=== PATIENT | female | born 1945 | race Caucasian/White ===

== ENCOUNTER 2022-04-22 09:00 | Outpatient (CLI) | payer MEDICARE, BC | END 2022-04-22 09:01 | disposition home or self-care (01) | LOC: NM 09:00 | PROVIDERS: ATTEND Student in an Organized Health Care Education/Training Program | DX: E21.3 Hyperparathyroidism, unspecified (principal) | CPT/HCPCS: 78072; A9500 ==

== ENCOUNTER 2022-11-10 15:00 | Inpatient (IN) | payer MEDICARE, BC ==
[2022-11-10 16:22] LABS: Hemoglobin 13.9 g/dL (12.0-15.5); Mean Corpuscular HGB CONC 35.1 g/dL (32.0-36.0); Mean Corpuscular Hemoglobin 33.7 pg (27.0-33.0); Mean Corpuscular Volume 96.1 fl (81.6-98.3); Mean Platelet Volume 10.8 fl (7.4-10.4); Platelet Count 212 10x3/uL (150-450); RBC Distribution Width 12.9 % (11.5-14.5); Red Blood Cell (RBC) Count 4.12 10x6/uL (3.90-5.03); White Blood Cell (WBC) Count 5.1 10x3/uL (3.5-10.5)
[2022-11-10 16:31] LABS: Anion Gap 13 mmol/L (10-20); BUN (Urea Nitrogen) 11 mg/dL (9.8-20.1); Calc. Creatinine Clearance 0 mL/min (70-130); Calcium 10.3 mg/dL (7.8-10.44); Carbon Dioxide 26 mmol/L (23-31); Chloride 99 mmol/L (98-107); Estimated GFR 88; Glucose 90 mg/dL (83-110); Potassium 3.7 mmol/L (3.5-5.1); Sodium 134 mmol/L (136-145)
[2022-11-11] MEDS ORDERED: Albumin 5% 500 ML ONE (06:16)
[2022-11-11] MEDS ORDERED: Fentanyl 250 MCG/5 ML VIAL ONE (06:29)
[2022-11-11] MEDS ORDERED: niCARdipine 25 MG/10 ML VIAL ONE (06:30)
[2022-11-11] MEDS ORDERED: SUGAMMADEX SODIUM 200 MG/2 ML VIAL ONE (06:30)
[2022-11-11] MEDS ORDERED: Rocuronium Bromide 50 MG/5 ML VIAL ONE (06:30)
[2022-11-11] MEDS ORDERED: Aminocaproic Acid 5 GM/20 ML VIAL ONE ×2 (06:30→07:34)
[2022-11-11] MEDS ORDERED: Insulin Regular 300 UNITS/3 ML VIAL ONE (06:30)
[2022-11-11] MEDS ORDERED: Midazolam HCl 5 mg/5 ml Vial ONE (06:30)
[2022-11-11] MEDS ORDERED: Heparin 10,000 UNITS/1 ML VIAL 30,000 UNITS in Sodium Chloride 0.9% 1,000 ML FS SCH (07:00)
[2022-11-11 07:21] LABS: SARS-CoV-2 NAA Rapid Test Not Detected (NotDetected)
[2022-11-11] MEDS ORDERED: Protamine Sulfate 250 MG/25 ML VIAL ONE (07:34)
[2022-11-11] MEDS ORDERED: Mannitol 12.5 GM/50 ML ONE (07:34)
[2022-11-11] MEDS ORDERED: Calcium Chloride 1 GM/10 ML Abboject SYRINGE ONE (07:34)
[2022-11-11] MEDS ORDERED: Heparin 30,000 units/30 ml VIAL ONE (07:34)
[2022-11-11] MEDS ORDERED: Thrombin 5000 UNITS/5 ML VIAL ONE (07:34)
[2022-11-11] MEDS ORDERED: PROPOFOL 200 MG/20 ML VIAL ONE (07:34)
[2022-11-11] MEDS ORDERED: Lidocaine 1% PF 5 ML VIAL ONE (07:34)
[2022-11-11] MEDS ORDERED: Heparin 5,000 UNITS/ML VIAL ONE (07:34)
[2022-11-11] MEDS ORDERED: Rocuronium Bromide 10 MG/ML (10ML VIAL) ONE (07:34)
[2022-11-11] MEDS ORDERED: Sodium Bicarb 50 MEQ/50 ML VIAL ONE ×2 (07:34→18:04)
[2022-11-11] MEDS ORDERED: Norepinephrine 4 MG/4 ML VIAL ONE (07:34)
[2022-11-11] MEDS ORDERED: Potassium Chloride 60 MEQ/30 ML VIAL ONE (07:34)
[2022-11-11] MEDS ORDERED: Cardioplegic Soln 1,000 ML BAG ONE (07:34)
[2022-11-11] MEDS ORDERED: Papaverine 60 MG/2 ML VIAL ONE (07:34)
[2022-11-11] MEDS ORDERED: Lidocaine 2% PF 100 mg/5 ml Syringe ONE (07:34)
[2022-11-11] MEDS ORDERED: Vancomycin 1 GM VIAL ONE (07:34)
[2022-11-11] MEDS ORDERED: PHENYLEPHRINE-NS 100 MCG/ML 10 ML SYRINGE ONE (08:42)
[2022-11-11] MEDS ORDERED: HYDROcodone/Acetaminophen 5/325 mg Tablet PO PRN (11:18)
[2022-11-11] MEDS ORDERED: Promethazine HCl 25 MG/ML VIAL IM PRN (11:18)
[2022-11-11] MEDS ORDERED: Guaifenesin DM 100-10/5 ML UDCUP PO PRN (11:18)
[2022-11-11] MEDS ORDERED: Bisacodyl 10 MG SUPP PR PRN (11:18)
[2022-11-11] MEDS ORDERED: Cyclobenzaprine 10 MG TAB PO PRN (11:18)
[2022-11-11] MEDS ORDERED: Bisacodyl 5 MG TAB PO PRN (11:18)
[2022-11-11] MEDS ORDERED: NOREPINEPHRINE 8 MG/250 ML-D5W 250 ML IVPB PRN (11:18)
[2022-11-11] MEDS ORDERED: Nitroglycerin 50 MG/250 ML BOT 250 ML IVPB PRN (11:18)
[2022-11-11] MEDS ORDERED: DOPamine 400 MG/D5W 250 ML 250 ML IVPB PRN (11:18)
[2022-11-11] MEDS ORDERED: Post-Op Insulin Drip Protocol IVPB ONE (11:18)
[2022-11-11] MEDS ORDERED: Mag-Al 1200 mg/1200 mg/30 ML UDCUP PO PRN (11:18)
[2022-11-11] MEDS ORDERED: hydrALAZINE 20 MG/ML VIAL SLOW IVP PRN (11:18)
[2022-11-11] MEDS ORDERED: Hetastarch 6% 500 ML 500 ML IVPB PRN (11:18)
[2022-11-11] MEDS ORDERED: niCARdipine 25 MG in Sodium Chloride 0.9% 250 ML 250 ML IVPB PRN (11:18)
[2022-11-11] MEDS ORDERED: Ondansetron PF 4 MG/2 ML Vial IVP PRN (11:18)
[2022-11-11] MEDS ORDERED: Ipratropium/Albuterol 3 ML NEB NEB PRN (11:18)
[2022-11-11] MEDS ORDERED: FENTANYL 50 MCG/ML 1 ML VIAL SLOW IVP PRN ×2 (11:32)
[2022-11-11 11:35] LABS: Actual Bicarbonate (HCO3a) 22.7 mEq/L (22-28); Base Excess (BEa) -0.6 mEq/L (-2.0 to +3.0); Calcium, Ionized (arterial) 1.14 mmol/L (1.12-1.30); Carboxyhemoglobin (COHb) 0.2 gm% (0.0-3.0); Hemoglobin (Hb) 12.1 g/dL (12.0-16.0); O2 Tension (PaO2), arterial 163.7 mmHg (> 70.0); Potassium - ABG Lab 3.33 mmol/L (3.70-5.30); pH, Arterial 7.46 (7.35-7.45)
[2022-11-11 11:36] LABS: Puncture Site Arterial Line
[2022-11-11 11:45] LABS: #Eosinphils 0.1 thou/uL (0.0-0.7); #Lymphocytes 1.1 thou/uL (1.20-3.40); #Monocytes 0.4 thou/uL (0.11-0.59); %Basophils 0.1 % (0.0-1.0); %Monocytes 5.7 % (0.0-10.0); %Neutrophils 79.2 % (42.0-75.0); Hemoglobin 11.4 g/dL (12.0-16.0); Mean Corpuscular HGB CONC 34.2 g/dL (32.0-36.0); Mean Corpuscular Hemoglobin 34.8 pg (27.0-31.0); Mean Platelet Volume 8.4 fL (7.4-10.4); Platelet Count 116 10x3/uL (130-400); RBC Distribution Width 12.1 % (11.5-14.5); Red Blood Cell (RBC) Count 3.28 mill/uL (4.20-5.40); White Blood Cell (WBC) Count 7.6 10x3/uL (4.8-10.8)
[2022-11-11] MEDS ORDERED: Insulin Regular 300 UNITS/3 ML VIAL SC PRN (11:45)
[2022-11-11] MEDS ORDERED: Dextrose 5% in Water 1,000 ML IV PRN (11:45)
[2022-11-11] MEDS ORDERED: HUMULIN R 100 UNITS in Sodium Chloride 0.9% 100 ML IVPB SCH (11:45)
[2022-11-11] MEDS ORDERED: Dextrose 50% Abboject 50 ML SYRINGE SLOW IVP PRN (11:45)
[2022-11-11] MEDS: Morphine 4 MG/ML VIAL SLOW IVP PRN ×2 (11:46→12:15)
[2022-11-11] MEDS: Ketorolac Tromethamine 30 MG/ML VIAL IVP SCH ×3 (11:47→23:41)
[2022-11-11 11:53] LABS: INR-International Normal Ratio 1.3; Prothrombin Time 17.1 sec (12.0-14.7)
[2022-11-11 11:58] LABS: Anion Gap 11 mmol/L (10-20); BUN (Urea Nitrogen) 11 mg/dL (9.8-20.1); Calc. Creatinine Clearance 86 mL/min (70-130); Calcium 7.7 mg/dL (7.8-10.44); Carbon Dioxide 19 mmol/L (23-31); Chloride 107 mmol/L (98-107); Estimated GFR 93; Glucose 116 mg/dL (83-110); Potassium 3.3 mmol/L (3.5-5.1); Sodium 134 mmol/L (136-145)
[2022-11-11] MEDS: Lactated Ringer's 1,000 ML IV SCH (12:31)
[2022-11-11] MEDS: Potassium Chloride 20 MEQ/100 ML PREMIX BAG IVPB PRN (12:31)
[2022-11-11] MEDS ORDERED: Fentanyl 100 MCG/2 ML VIAL SLOW IVP PRN ×2 (14:15)
[2022-11-11] MEDS: CEFAZOLIN 2 GM in Sodium Chloride 0.9% 100 ML IVPB SCH ×2 (16:30→23:41)
[2022-11-11 17:14] LABS: Hemoglobin 11.8 g/dL (12.0-16.0)
[2022-11-11 17:30] LABS: Potassium 4.2 mmol/L (3.5-5.1)
[2022-11-11 17:46] LABS: Actual Bicarbonate (HCO3a) 19.4 mEq/L (22-28); Base Excess (BEa) -5.9 mEq/L (-2.0 to +3.0); CO2 Tension 37.6 mmHg (35.0-45.0); Calcium, Ionized (arterial) 1.13 mmol/L (1.12-1.30); Carboxyhemoglobin (COHb) 0.4 gm% (0.0-3.0); Hemoglobin (Hb) 12.5 g/dL (12.0-16.0); O2 Tension (PaO2), arterial 99.9 mmHg (> 70.0); Potassium - ABG Lab 4.09 mmol/L (3.70-5.30); pH, Arterial 7.33 (7.35-7.45)
[2022-11-11 17:48] LABS: Puncture Site Arterial Line
[2022-11-11] MEDS ORDERED: Sodium Bicarb 50 MEQ/50 ML VIAL IVP SCH (18:30)
[2022-11-11] MEDS: Atorvastatin Calcium 10 MG TAB PO SCH (21:18)
[2022-11-11] MEDS: Famotidine/PF 20 mg/2ml Vial SLOW IVP SCH (21:18)
[2022-11-12] MEDS: Lactated Ringer's 1,000 ML IV SCH ×2 (00:27→18:56)
[2022-11-12 04:38] LABS: #Lymphocytes 0.9 thou/uL (1.20-3.40); #Monocytes 0.6 thou/uL (0.11-0.59); #Neutrophils 7.5 thou/uL (1.40-6.50); %Basophils 0.3 % (0.0-1.0); %Lymphocytes 9.4 % (21.0-51.0); %Monocytes 7.1 % (0.0-10.0); %Neutrophils 83.1 % (42.0-75.0); Mean Corpuscular HGB CONC 33.8 g/dL (32.0-36.0); Mean Corpuscular Hemoglobin 34.8 pg (27.0-31.0); Platelet Count 127 10x3/uL (130-400); RBC Distribution Width 12.2 % (11.5-14.5); Red Blood Cell (RBC) Count 3.16 mill/uL (4.20-5.40)
[2022-11-12 05:00] LABS: Anion Gap 12 mmol/L (10-20); BUN (Urea Nitrogen) 19 mg/dL (9.8-20.1); Calc. Creatinine Clearance 80 mL/min (70-130); Calcium 8.3 mg/dL (7.8-10.44); Carbon Dioxide 24 mmol/L (23-31); Chloride 106 mmol/L (98-107); Estimated GFR 86; Glucose 111 mg/dL (83-110); Potassium 3.6 mmol/L (3.5-5.1); Sodium 138 mmol/L (136-145)
[2022-11-12] MEDS: Ketorolac Tromethamine 30 MG/ML VIAL IVP SCH ×4 (06:06→23:50)
[2022-11-12] MEDS: Potassium Chloride 20 MEQ/100 ML PREMIX BAG IVPB PRN (06:08)
[2022-11-12] MEDS: CEFAZOLIN 2 GM in Sodium Chloride 0.9% 100 ML IVPB SCH (08:39)
[2022-11-12] MEDS: Famotidine/PF 20 mg/2ml Vial SLOW IVP SCH ×2 (08:40→20:48)
[2022-11-12] MEDS: Aspirin Chewable 81 MG TAB PO SCH (08:40)
[2022-11-12] MEDS: Citalopram 20 MG TAB PO SCH (08:40)
[2022-11-12] MEDS: Magnesium 2 GM/50 ML(in water) 2 GM in Premix Bag 1 BAG IVPB SCH (08:41)
[2022-11-12] MEDS: Polyethylene Glycol 3350 17 GM Packet PO SCH (08:42)
[2022-11-12] MEDS ORDERED: FLU VACC QS2022-23(65YR UP)/PF 240 MCG/0.7 ML SYRINGE IM ONE (09:00)
[2022-11-12] MEDS ORDERED: Insulin Glargine 30 UNITS/0.3 ML VIAL SC PRN (11:38)
[2022-11-12 18:08] VITALS: BMI 27.7
[2022-11-12] MEDS: Atorvastatin Calcium 10 MG TAB PO SCH (20:48)
[2022-11-12] MEDS: HYDROcodone/Acetaminophen 5/325 mg Tablet PO PRN (23:49)
[2022-11-13] MEDS: Acetaminophen 325 MG TAB PO PRN (03:40)
[2022-11-13] MEDS: Lactated Ringer's 1,000 ML IV SCH (03:44)
[2022-11-13 03:59] LABS: #Lymphocytes 1.2 thou/uL (1.20-3.40); #Monocytes 0.5 thou/uL (0.11-0.59); #Neutrophils 4.8 thou/uL (1.40-6.50); %Basophils 0.1 % (0.0-1.0); %Eosinophils 0.3 % (0.0-10.0); %Lymphocytes 18.7 % (21.0-51.0); %Monocytes 8.3 % (0.0-10.0); %Neutrophils 72.6 % (42.0-75.0); Hemoglobin 9.3 g/dL (12.0-16.0); Mean Corpuscular HGB CONC 35.2 g/dL (32.0-36.0); Mean Corpuscular Hemoglobin 36.4 pg (27.0-31.0); RBC Distribution Width 12.2 % (11.5-14.5); Red Blood Cell (RBC) Count 2.55 mill/uL (4.20-5.40); White Blood Cell (WBC) Count 6.5 10x3/uL (4.8-10.8)
[2022-11-13 04:06] LABS: Anion Gap 8 mmol/L (10-20); BUN (Urea Nitrogen) 17 mg/dL (9.8-20.1); Calc. Creatinine Clearance 79 mL/min (70-130); Calcium 8.2 mg/dL (7.8-10.44); Carbon Dioxide 27 mmol/L (23-31); Chloride 104 mmol/L (98-107); Estimated GFR 90; Glucose 96 mg/dL (83-110); Potassium 3.7 mmol/L (3.5-5.1); Sodium 135 mmol/L (136-145)
[2022-11-13 04:37] LABS: Mean Platelet Volume 8.2 fL (7.4-10.4); Platelet Count 90 10x3/uL (130-400); Platelet Morphology Comment Appears Decreased
[2022-11-13] MEDS: Ketorolac Tromethamine 30 MG/ML VIAL IVP SCH (05:24)
[2022-11-13] MEDS ORDERED: Nitroglycerin 0.4 MG TAB (25 Tab Bottle) SL PRN (08:28)
[2022-11-13] MEDS: Polyethylene Glycol 3350 17 GM Packet PO SCH (09:29)
[2022-11-13] MEDS: Citalopram 20 MG TAB PO SCH (09:29)
[2022-11-13] MEDS: Magnesium 2 GM/50 ML(in water) 2 GM in Premix Bag 1 BAG IVPB SCH (09:29)
[2022-11-13] MEDS: Aspirin Chewable 81 MG TAB PO SCH (09:29)
[2022-11-13] MEDS: Amiodarone 450 MG, Admixture Fee 1 EACH in Dextrose 5% in Water 250 ML IVPB SCH (16:45)
[2022-11-13] MEDS ORDERED: Amiodarone 450 MG in Dextrose 5% in Water 250 ML IVPB SCH (17:00)
[2022-11-13] MEDS: Atorvastatin Calcium 10 MG TAB PO SCH (20:39)
[2022-11-13] MEDS: HYDROcodone/Acetaminophen 5/325 mg Tablet PO PRN (20:45)
[2022-11-14] MEDS: Amiodarone 450 MG, Admixture Fee 1 EACH in Dextrose 5% in Water 250 ML IVPB SCH (02:36)
[2022-11-14 05:03] LABS: #Eosinphils 0.1 thou/uL (0.0-0.7); #Lymphocytes 1.3 thou/uL (1.20-3.40); #Monocytes 0.5 thou/uL (0.11-0.59); #Neutrophils 4.6 thou/uL (1.40-6.50); %Basophils 0.1 % (0.0-1.0); %Monocytes 8.2 % (0.0-10.0); %Neutrophils 70.7 % (42.0-75.0); Hemoglobin 10.3 g/dL (12.0-16.0); Mean Corpuscular HGB CONC 34.6 g/dL (32.0-36.0); Mean Corpuscular Hemoglobin 35.3 pg (27.0-31.0); Mean Platelet Volume 10.1 fL (7.4-10.4); Platelet Count 85 10x3/uL (130-400); RBC Distribution Width 12.2 % (11.5-14.5); Red Blood Cell (RBC) Count 2.91 mill/uL (4.20-5.40); White Blood Cell (WBC) Count 6.5 10x3/uL (4.8-10.8)
[2022-11-14 05:33] LABS: Anion Gap 11 mmol/L (10-20); BUN (Urea Nitrogen) 15 mg/dL (9.8-20.1); Calc. Creatinine Clearance 90 mL/min (70-130); Carbon Dioxide 20 mmol/L (23-31); Chloride 107 mmol/L (98-107); Estimated GFR 92; Glucose 88 mg/dL (83-110); Potassium 3.9 mmol/L (3.5-5.1); Sodium 134 mmol/L (136-145)
[2022-11-14] MEDS: Potassium Chloride 10 MEQ TAB PO SCH (09:27)
[2022-11-14] MEDS: Furosemide 40 MG TAB PO SCH (09:27)
[2022-11-14] MEDS: Polyethylene Glycol 3350 17 GM Packet PO SCH (09:28)
[2022-11-14] MEDS: Citalopram 20 MG TAB PO SCH (09:28)
[2022-11-14] MEDS: Aspirin Chewable 81 MG TAB PO SCH (09:28)
[2022-11-14] MEDS: Amiodarone 200 MG TAB PO SCH ×2 (09:28→21:08)
[2022-11-14] MEDS: HYDROcodone/Acetaminophen 5/325 mg Tablet PO PRN ×2 (10:01→21:08)
[2022-11-14] MEDS ORDERED: Digoxin 0.5 MG/2 ML AMP SLOW IVP SCH ×2 (10:30→18:30)
[2022-11-14] MEDS ORDERED: Furosemide 20 MG/2 ML VIAL SLOW IVP SCH (18:45)
[2022-11-14] MEDS: Atorvastatin Calcium 10 MG TAB PO SCH (21:08)
[2022-11-15] MEDS: HYDROcodone/Acetaminophen 5/325 mg Tablet PO PRN ×2 (02:52→20:41)
[2022-11-15 05:27] LABS: Digoxin 0.72 ng/mL (0.8-2.0)
[2022-11-15 05:32] LABS: Cardiac Risk 2.6 (Less than 4.5)
[2022-11-15] MEDS: Potassium Chloride 10 MEQ TAB PO SCH (09:49)
[2022-11-15] MEDS: Amiodarone 200 MG TAB PO SCH ×2 (09:49→20:41)
[2022-11-15] MEDS: Aspirin Chewable 81 MG TAB PO SCH (09:49)
[2022-11-15] MEDS: Furosemide 40 MG TAB PO SCH (09:49)
[2022-11-15] MEDS: Citalopram 20 MG TAB PO SCH (09:49)
[2022-11-15] MEDS: Polyethylene Glycol 3350 17 GM Packet PO SCH (09:52)
[2022-11-15] MEDS: Acetaminophen 325 MG TAB PO PRN (18:01)
[2022-11-15] MEDS: Atorvastatin Calcium 10 MG TAB PO SCH (20:41)
[2022-11-16] MEDS ORDERED: Losartan 25 MG TAB PO SCH (09:00)
[2022-11-16] MEDS: Aspirin Chewable 81 MG TAB PO SCH (09:59)
[2022-11-16] MEDS: Potassium Chloride 10 MEQ TAB PO SCH ×2 (10:00→18:16)
[2022-11-16] MEDS: Citalopram 20 MG TAB PO SCH (10:00)
[2022-11-16] MEDS: Amiodarone 200 MG TAB PO SCH ×2 (10:02→21:46)
[2022-11-16] MEDS: Furosemide 40 MG TAB PO SCH ×2 (10:02→15:06)
[2022-11-16] MEDS: Polyethylene Glycol 3350 17 GM Packet PO SCH (10:03)
[2022-11-16] MEDS: Atorvastatin Calcium 10 MG TAB PO SCH (21:46)
[2022-11-17] MEDS ORDERED: Amlodipine 5 MG TAB PO SCH ×2 (04:15→21:00)
[2022-11-17] MEDS: Potassium Chloride 10 MEQ TAB PO SCH ×2 (11:10→17:43)
[2022-11-17] MEDS: Citalopram 20 MG TAB PO SCH (11:11)
[2022-11-17] MEDS: Losartan 25 MG TAB PO SCH (11:12)
[2022-11-17] MEDS: Furosemide 40 MG TAB PO SCH ×2 (11:14→14:45)
[2022-11-17] MEDS: Aspirin Chewable 81 MG TAB PO SCH (11:14)
[2022-11-17] MEDS: Amiodarone 200 MG TAB PO SCH ×2 (11:14→21:13)
[2022-11-17] MEDS: Atorvastatin Calcium 10 MG TAB PO SCH (21:13)
[2022-11-18] MEDS ORDERED: Furosemide 40 MG TAB PO SCH (07:30)
[2022-11-18] MEDS ORDERED: Potassium Chloride 10 MEQ TAB PO SCH (08:00)
[2022-11-18 08:02] LABS: #Eosinphils 0.3 thou/uL (0.0-0.7); #Monocytes 0.7 thou/uL (0.11-0.59); #Neutrophils 4.6 thou/uL (1.40-6.50); %Basophils 0.2 % (0.0-1.0); %Eosinophils 5.3 % (0.0-10.0); %Lymphocytes 14.7 % (21.0-51.0); %Monocytes 10.4 % (0.0-10.0); %Neutrophils 69.4 % (42.0-75.0); Mean Corpuscular HGB CONC 32.3 g/dL (32.0-36.0); Mean Corpuscular Hemoglobin 33.5 pg (27.0-31.0); Mean Platelet Volume 8.2 fL (7.4-10.4); Platelet Count 271 10x3/uL (130-400); RBC Distribution Width 12.1 % (11.5-14.5); White Blood Cell (WBC) Count 6.6 10x3/uL (4.8-10.8)
[2022-11-18 08:08] LABS: Anion Gap 12 mmol/L (10-20); BUN (Urea Nitrogen) 10 mg/dL (9.8-20.1); Calc. Creatinine Clearance 75 mL/min (70-130); Calcium 9.9 mg/dL (7.8-10.44); Carbon Dioxide 28 mmol/L (23-31); Chloride 102 mmol/L (98-107); Estimated GFR 90; Glucose 95 mg/dL (83-110); Potassium 3.9 mmol/L (3.5-5.1); Sodium 138 mmol/L (136-145)
[2022-11-18] MEDS: Amiodarone 200 MG TAB PO SCH (10:08)
[2022-11-18] MEDS: Losartan 25 MG TAB PO SCH (10:08)
[2022-11-18] MEDS: Citalopram 20 MG TAB PO SCH (10:09)
[2022-11-18] MEDS: Aspirin Chewable 81 MG TAB PO SCH (10:09)
[2022-11-18 11:34] VITALS: TEMP 98
[2022-11-18 15:17] VITALS: BP 122/64
== END 2022-11-18 16:06 | disposition home or self-care (01) | DRG 236 ==
LOC: SURG A 11-11 06:11 → CCU 11-11 11:01 → 2NO 11-13 18:05
PROVIDERS: ADMIT Thoracic Surgery (Cardiothoracic Vascular Surgery); ATTEND Thoracic Surgery (Cardiothoracic Vascular Surgery)
PROC: 02100Z9 Bypass Coronary Artery, One Artery from Left Internal Mammary, Open Approach (ICD-10-PCS; principal; 2022-11-11)
PROC: 021209W Bypass Coronary Artery, Three Arteries from Aorta with Autologous Venous Tissue, Open Approach (ICD-10-PCS; 2022-11-11)
PROC: 06BQ4ZZ Excision of Left Saphenous Vein, Percutaneous Endoscopic Approach (ICD-10-PCS; 2022-11-11)
PROC: 5A1221Z Performance of Cardiac Output, Continuous (ICD-10-PCS; 2022-11-11)
PROC: 02L70CK Occlusion of Left Atrial Appendage with Extraluminal Device, Open Approach (ICD-10-PCS; 2022-11-11)
PROC: 02H633Z Insertion of Infusion Device into Right Atrium, Percutaneous Approach (ICD-10-PCS; 2022-11-11)
PROC: 30233J1 Transfusion of Nonautologous Serum Albumin into Peripheral Vein, Percutaneous Approach (ICD-10-PCS; 2022-11-11)
PROC: 3E033XZ Introduction of Vasopressor into Peripheral Vein, Percutaneous Approach (ICD-10-PCS; 2022-11-11)
DX: I25.10 Atherosclerotic heart disease of native coronary artery without angina pectoris (principal); I97.190 Other postprocedural cardiac functional disturbances following cardiac surgery; E78.00 Pure hypercholesterolemia, unspecified; I10 Essential (primary) hypertension; I48.91 Unspecified atrial fibrillation; I95.9 Hypotension, unspecified; Z20.822 Contact with and (suspected) exposure to COVID-19; Z90.710 Acquired absence of both cervix and uterus; Z87.891 Personal history of nicotine dependence; Z79.82 Long term (current) use of aspirin; Z95.5 Presence of coronary angioplasty implant and graft; Z98.890 Other specified postprocedural states; Z79.899 Other long term (current) drug therapy; I35.8 Other nonrheumatic aortic valve disorders
CPT/HCPCS: 36415; 36416; 36430; 71045; 80048; 80061; 80162; 82805; 85025; 85027; 85610; 85730; 86850; 86900; 86901; 87811; 93005; 93010; 93798; 94002; 97139; C1751; C1776; J0282; J1160; J1642; J1644; J1815; J1885; J1940; J2001; J2150; J2250; J2270; J2440; J2704; J2720; J3010; J3370; J3475; J3480; J3490; J7070; J7120; P9045; S0017; S0028; U0002

== ENCOUNTER 2023-12-28 13:45 | Outpatient (CLI) | payer MEDICARE, BC | END 2023-12-28 13:46 | disposition home or self-care (01) | LOC: BICMAMMO 13:45 | PROVIDERS: ATTEND Family Medicine | DX: Z12.31 Encounter for screening mammogram for malignant neoplasm of breast (principal); Z13.820 Encounter for screening for osteoporosis; Z78.0 Asymptomatic menopausal state | CPT/HCPCS: 77063; 77067; 77080 ==

== ENCOUNTER 2024-07-17 10:16 | Outpatient (CLI) | payer MEDICARE, BC | END 2024-07-17 10:17 | disposition home or self-care (01) | LOC: MRI 10:16 | PROVIDERS: ATTEND Neurological Surgery | DX: M47.25 Other spondylosis with radiculopathy, thoracolumbar region (principal); M47.26 Other spondylosis with radiculopathy, lumbar region; M47.27 Other spondylosis with radiculopathy, lumbosacral region; M48.061 Spinal stenosis, lumbar region without neurogenic claudication; Z98.890 Other specified postprocedural states | CPT/HCPCS: 72148 ==

== ENCOUNTER 2024-07-27 11:47 | Outpatient (CLI) | payer MEDICARE, BC | END 2024-07-27 11:48 | disposition home or self-care (01) | LOC: MRI 11:47 | PROVIDERS: ATTEND Neurological Surgery | DX: M47.25 Other spondylosis with radiculopathy, thoracolumbar region (principal); M47.26 Other spondylosis with radiculopathy, lumbar region; M51.16 Intervertebral disc disorders with radiculopathy, lumbar region; M48.061 Spinal stenosis, lumbar region without neurogenic claudication; M48.07 Spinal stenosis, lumbosacral region; Z98.890 Other specified postprocedural states | CPT/HCPCS: 72148 ==